=== PATIENT | female | born 1995 | race Caucasian/White ===

== ENCOUNTER 2021-11-21 19:21 | Emergency (ER) | payer OTHER ==
[2021-11-21] MEDS ORDERED: MORPHINE SULFATE 2 MG/ML SYRINGE IM STA (19:56)
--- NOTE | 2021-11-21 20:25 | ED ---
General Adult HPI - General Chief complaint: Extremity Injury, Lower Stated complaint: fall; right ankle / right arm pain Time Seen by Provider: 11/21/21 19:29 Source: patient Mode of arrival: wheelchair Limitations: no limitations - History of Present Illness Initial comments: Patient is a 26-year-old female presents the emergency room after a trip and fall in which her ankle twisted and she felt a popping sensation. Since that time she has had lateral right ankle swelling and pain. When she fell she landed on her right elbow which is also painful with reduced range of motion and some swelling. She denies any dizziness or LOC before after the fall. She denies any head trauma or trauma to any other joints. She denies any significant lac erations. She did fall outdoors. With the exception of anxiety and depression which is not currently on any treatment for she denies any significant past medical history. - Related Data Home Medications Medication Instructions Recorded Confirmed Acetaminophen Tab [Tylenol Tab] 650 mg PO Q4H PRN 11/21/14 11/21/14 Previous Rx's Medication Instructions Recorded Acetaminophen-Codeine 300-30mg 1 - 2 each PO Q4HR PRN #30 tab 11/22/14 [Tylenol w/codeine #3] Ibuprofen [Motrin] 600 mg PO Q6HR PRN #40 tab 11/22/14 Ibuprofen [Motrin] 800 mg PO Q8H PRN 7 Days #21 tab 11/21/21 Allergies Allergy/AdvReac Type Severity Reaction Status Date / Time No Known Allergies Allergy Verified 11/21/21 19:25 Review of Systems ROS Statement: Those systems with pertinent positive or pertinent negative responses have been documented in the HPI. ROS Other: All systems not noted in ROS Statement are negative. Past Medical History Past Medical History: No Reported History History of Any Multi-Drug Resistant Organisms: None Reported Past Surgical History: No Surgical Hx Reported Past Anesthesia/Blood Transfusion Reactions: No Reported Reaction Past Psychological History: Anxiety, Bipolar, Depression Smoking Status: Vaper Past Alcohol Use History: Occasional Past Drug Use History: None Reported General Exam Limitations: no limitations General appearance: alert, in no apparent distress Head exam: Present: atraumatic, normocephalic, normal inspection Eye exam: Present: normal appearance, PERRL, EOMI. Absent: scleral icterus, conjunctival injection, periorbital swelling ENT exam: Present: normal exam, mucous membranes moist Neck exam: Present: normal inspection. Absent: tenderness, meningismus, lymphadenopathy Respiratory exam: Present: normal lung sounds bilaterally. Absent: respiratory distress, wheezes, rales, rhonchi, stridor Cardiovascular Exam: Present: regular rate, normal rhythm, normal heart sounds. Absent: systolic murmur, diastolic murmur, rubs, gallop, clicks GI/Abdominal exam: Present: soft, normal bowel sounds. Absent: distended, tenderness, guarding, rebound, rigid Rectal exam: Present: deferred Right Elbow exam: Present: tenderness, swelling. Absent: full ROM, erythema Vascular: Absent: vascular compromise Right Ankle exam: Present: tenderness, swelling, abrasion. Absent: full ROM, laceration, ecchymosis, deformity, erythema Neurovascular tendon exam: Present: no vascular compromise Back exam: Present: normal inspection Neurological exam: Present: alert, oriented X3, CN II-XII intact Psychiatric exam: Present: normal affect, normal mood Skin exam: Present: abrasion (Right foot and right lower leg mild no evidence of infection or drainage.) Course Vital Signs 11/21/21 19:23 Temperature 98.4 F Pulse Rate 81 Respiratory 18 Rate Blood Pressure 120/72 O2 Sat by Pulse 99 Oximetry Procedures - Orthopedic Splinting/Casting Injury #1 Side: right Upper Extremity Injury Location: elbow Upper Extremity Immobilizer: sling/shoulder immobilizer, posterior splint Injury #2 Side: right Lower Extremity Injury Location: ankle Lower Extremity Immobilizer: Chip wrap Medical Decision Making - Medical Decision Making Patient is a 26-year-old female with a trip and fall rolling her right ankle and landing on her right elbow. She complains of pain in both locations. Due to traumatic injury will check x-ray of right elbow and right ankle. No indication for laboratory studies. Trip and fall with no head trauma or neurological symptoms no indication for computed tomography scan of the head. Will give IM morphine for pain and monitor response. X-ray of the right ankle show soft tissue swelling. No fracture seen. X-ray of right elbow shows acute nondisplaced radial head chip fracture. Elbow joint effusion. Will Chip wrap right ankle and encouraged R.I.C.E of ankle with weightbearing as tolerated. Symptoms of radial head chip fracture reviewed. Will place and posterior immobilizing splint and sling. Will give Tylenol 3 starter pack to utilize for pain along with ibuprofen 800 prescription to alternate. Advised due to immobility status to keep off work over the next week and follow-up with the orthopedist. Case discussed with Dr. Rios. - Radiology Data Radiology results: report reviewed, image reviewed X-ray of low complete right findings there is a small elbow joint effusion with posterior fat pad sign. There is a nondisplaced acute chip fracture of anterior aspect of radial head. No dislocation. X-ray left ankle findings there is soft tissue swelling over the lateral malleolus. Ankle mortise is anatomical. Joint spaces are normal. Subtalar joint is intact. Disposition Clinical Impression: Right ankle sprain, Fracture of radial head, right, closed Disposition: HOME SELF-CARE Condition: Stable Instructions (If sedation given, give patient instructions): Ankle Sprain (ED), Elbow Fracture (DC) Additional Instructions: Please continue to maintain right arm and posterior immobilized splint along with sling. Please utilize rest, ice, compression and elevation for right ankle sprain. Activity as tolerated with right ankle can be performed however due to immobilization status with right elbow recommend no work for the next 7 days or until approved by or throat. Please follow-up with orthopedist along with your primary care provider. Utilize Tylenol 3 starter pack and ibuprofen as needed for pain. Please return to the Emergency Department if symptoms worsen or any other concerns. Prescriptions: Ibuprofen [Motrin] 800 mg PO Q8H PRN 7 Days #21 tab PRN Reason: Pain Is patient prescribed a controlled substance at d/c from ED?: No Referrals: Kale Larios MD [Primary Care Provider] - 1-2 days Wenceslao Harding MD [STAFF PHYSICIAN] - 1-2 days Time of Disposition: 22:17
--- NOTE | 2021-11-21 20:51 | XR ---
EXAMINATION TYPE: XR ankle complete RT DATE OF EXAM: 11/21/2021 COMPARISON: NONE HISTORY: Pain and swelling TECHNIQUE: 3 views FINDINGS: There is soft tissue swelling over the lateral malleolus. Ankle mortise is anatomic. Joint spaces are normal. Subtalar joint is intact. IMPRESSION: Soft tissue swelling. No fracture seen.
--- NOTE | 2021-11-21 20:55 | XR ---
EXAMINATION TYPE: XR elbow complete RT DATE OF EXAM: 11/21/2021 COMPARISON: NONE HISTORY: Pain TECHNIQUE: 3 views FINDINGS: There are small elbow joint effusion with posterior fat-pad sign. There is nondisplaced chi p fracture of the anterior aspect of the radial head. No dislocation. IMPRESSION: Acute radial head chip fracture. Elbow joint effusion.
[2021-11-21] MEDS ORDERED: ACET/COD 300 MG/30 MG STARTER PACK 6 TAB BTL PO STA (22:07)
[2021-11-21 22:23] VITALS: BP 133/75; PULSE 79; RESP 22; TEMP 98
== END 2021-11-21 22:22 | disposition home or self-care (01) ==
LOC: EC 19:21
DX: S52.121A Displaced fracture of head of right radius, initial encounter for closed fracture (principal); S93.401A Sprain of unspecified ligament of right ankle, initial encounter; F41.9 Anxiety disorder, unspecified; F31.9 Bipolar disorder, unspecified; Z79.899 Other long term (current) drug therapy; W01.0XXA Fall on same level from slipping, tripping and stumbling without subsequent striking against object, initial encounter
CPT/HCPCS: 73080; 73610; 99283; 96372; J2270